=== PATIENT | male | born 2000 | race African-American/Black ===

== ENCOUNTER 2020-04-24 03:22 | Emergency (ER) | payer MEDICAID ==
[~2020-04-24] VITALS: Ht 185.4 cm; Wt 98.4 kg
[2020-04-24 03:55] VITALS: BP 136/87
== END 2020-04-24 04:33 | disposition home or self-care (01) ==
LOC: ER 03:22
DX: J02.9 Acute pharyngitis, unspecified (principal); Z03.818 Encounter for observation for suspected exposure to other biological agents ruled out
CPT/HCPCS: 99283; C9803; U0003